=== PATIENT | male | born 1935 | race Caucasian/White ===

== ENCOUNTER 2016-10-15 10:36 | Emergency (ER) | payer MEDICARE, OTHER ==
[2016-10-15 10:57] VITALS: TEMP 97.5
--- NOTE | 2016-10-15 11:33 | ED ---
General Adult HPI - General Chief complaint: Extremity Injury, Lower Stated complaint: Leg spasms Time Seen by Provider: 10/15/16 11:19 Source: patient, family, RN notes reviewed, old records reviewed Mode of arrival: ambulatory Limitations: no limitations - History of Present Illness Initial comments: Chief complaint and history of present illness a 80-year-old male here with his daughter. Patient reports that throughout this past evening last night he had spasms in both legs. He would pull his toes back which will help alleviate the discomfort. Patient thinks he is drinking adequate fluids. Denies any increase in activity or injury. Otherwise no back pain. No other complaints. - Related Data Home Medications Medication Instructions Recorded Confirmed Warfarin [Coumadin] 5 tab PO MOFR 05/23/14 10/15/16 Atorvastatin [Lipitor] 5 mg PO DAILY 06/11/14 10/15/16 Atenolol 25 mg PO HS 07/15/15 10/15/16 Cholecalciferol [Vitamin D3] 2,000 unit PO DAILY 07/15/15 10/15/16 Sertraline [Zoloft] 50 mg PO DAILY 07/15/15 10/15/16 Tiotropium 18 Mcg/Puff [Spiriva] 1 cap INHALATION RT-DAILY 07/15/15 10/15/16 Warfarin [Coumadin] 2.5 mg PO SUTUWETHSA 10/15/16 10/15/16 traZODone HCL 100 mg PO HS 10/15/16 10/15/16 Allergies Allergy/AdvReac Type Severity Reaction Status Date / Time No Known Allergies Allergy Verified 10/15/16 11:17 Review of Systems ROS Statement: Those systems with pertinent positive or pertinent negative responses have been documented in the HPI. Review of systems no visual acuity changes no headache no stiff neck no chest pain no palpitations no shortness of breath no abdominal discomfort and no vomiting or diarrhea. Patient did take Pepto-Bismol because he felt a little nauseated. No neuro deficits. His complaint is frequent spasms of both left and right calves during the evening making difficult to sleep. All systems otherwise reviewed. Past medical problems significant for A. fib on Coumadin. Hyperlipidemia, hypertension and some memory impairment. Surgeries include appendectomy, cholecystectomy, hernia repair, pacemaker, prostate surgery and tonsillectomy. Family history noncontributory. No known ALLERGIES. Nonsmoker nondrinker. ROS Other: All systems not noted in ROS Statement are negative. Past Medical History Past Medical History: Atrial Fibrillation, Hyperlipidemia, Hypertension, Memory Impairment History of Any Multi-Drug Resistant Organisms: None Reported Past Surgical History: Appendectomy, Cholecystectomy, Hernia Repair, Pacemaker, Prostate Surgery, Tonsillectomy Past Psychological History: No Psychological Hx Reported Smoking Status: Former smoker Past Alcohol Use History: None Reported Past Drug Use History: None Reported - Past Family History Mother Family Medical History: Dementia Father Additional Family Medical History / Comment(s): smoker General Exam - General Exam Comments Initial Comments: General: The patient is awake and alert, in no distress, and does not appear acutely ill. Currently symptom-free. Last night he had muscle spasms to both left and right calf. Vital signs show temperature 97.5 pulse 89 respiratory rate 17 pulse ox 96% room air blood pressure 144/76. Elevated systolic noted patient will be following up with his family physician next week. Eye: Pupils are equal, round and reactive to light, extra-ocular movements are intact ; there is normal conjunctiva bilaterally. No signs of icterus. Ears, nose, mouth and throat: There are moist mucous membranes and no oral lesions. Neck: The neck is supple, there is no tenderness . Cardiovascular: Irregular rate and rhythm. No murmur, rub or gallop is appreciated. Respiratory: Lungs are clear to auscultation, respirations are non-labored, breath sounds are equal. No wheezes, stridor, rales, or rhonchi. Gastrointestinal: Soft, non-distended, non-tender abdomen without masses or organomegaly noted. There is no rebound or guarding present. No CVA tenderness. Bowel sounds are unremarkable. Back: There is no tenderness to palpation in the midline. There is no obvious deformity. No rashes noted. Musculoskeletal: Normal ROM, no tenderness, There is no pedal edema. There is no calf tenderness or swelling. Sensation intact. Pulses equal bilaterally 2+. No spasms at this time. Ambulates without difficulty no change in balance. No tenderness. Negative Homans sign bilaterally. Neurological: No focal or lateralizing findings plain have any neuro deficits. None noted. Skin: Skin is warm and dry and no rashes or lesions are noted. Limitations: no limitations Course Vital Signs 10/15/16 10:53 Temperature 97.5 F L Pulse Rate 89 Respiratory 17 Rate Blood Pressure 144/76 O2 Sat by Pulse 96 Oximetry Medical Decision Making - Medical Decision Making Patient advised to increase fluid intake. Take Tylenol prior to going to bed. Place pole between her legs are on her knees. If her problem persists follow- up family physician. - Lab Data Result diagrams: 10/15/16 11:30 10/15/16 11:30 Lab Results 10/15/16 10/15/16 Range/Units 11:30 11:30 WBC 6.0 (3.8-10.6) k/uL RBC 4.29 L (4.30-5.90) m/uL Hgb 13.1 (13.0-17.5) gm/dL Hct 39.2 (39.0-53.0) % MCV 91.3 (80.0-100.0) fL MCH 30.4 (25.0-35.0) pg MCHC 33.4 (31.0-37.0) g/dL RDW 13.1 (11.5-15.5) % Plt Count 227 (150-450) k/uL Neutrophils % 67 % Lymphocytes % 24 % Monocytes % 6 % Eosinophils % 2 % Basophils % 1 % Neutrophils # 4.0 (1.3-7.7) k/uL Lymphocytes # 1.4 (1.0-4.8) k/uL Monocytes # 0.3 (0-1.0) k/uL Eosinophils # 0.1 (0-0.7) k/uL Basophils # 0.1 (0-0.2) k/uL Sodium 141 (137-145) mmol/L Potassium 4.3 (3.5-5.1) mmol/L Chloride 106 (98-107) mmol/L Carbon Dioxide 26 (22-30) mmol/L Anion Gap 9 mmol/L BUN 20 (9-20) mg/dL Creatinine 1.05 (0.66-1.25) mg/dL Est GFR (MDRD) Af Amer >60 (>60 ml/min/1.73 sqM) Est GFR (MDRD) Non-Af >60 (>60 ml/min/1.73 sqM) Glucose 98 (74-99) mg/dL Calcium 9.5 (8.4-10.2) mg/dL Total Bilirubin 0.7 (0.2-1.3) mg/dL AST 23 (17-59) U/L ALT 30 (21-72) U/L Alkaline Phosphatase 64 (38-126) U/L Total Protein 7.0 (6.3-8.2) g/dL Albumin 4.2 (3.5-5.0) g/dL Disposition Clinical Impression: Muscle spasm of both lower legs Disposition: HOME SELF-CARE Condition: Stable Instructions: Muscle Spasm (ED) Additional Instructions: Increase fluids, take, prior to bed. Place pillow between her legs on the her knees. Follow-up with your family physician if problem persists Time of Disposition: 12:22
[2016-10-15 12:03] LABS: Basophils # (A) 0.1 k/uL (0-0.2); Basophils % (A) 1 %; CH 31.5; CHCM 34.7; Eosinophils # (A) 0.1 k/uL (0-0.7); Eosinophils % (A) 2 %; HCT 39.2 % (39.0-53.0); HDW 2.51; HGB 13.1 gm/dL (13.0-17.5); Luc # (Auto) 0.07; Luc % (Auto) 1; Lymphocytes # (A) 1.4 k/uL (1.0-4.8); Lymphocytes % (A) 24 %; MCH 30.4 pg (25.0-35.0); MCHC 33.4 g/dL (31.0-37.0); MCV 91.3 fL (80.0-100.0); Mean Platelet Volume 7.5; Monocytes # (A) 0.3 k/uL (0-1.0); Monocytes % (A) 6 %; Neutrophils % (A) 67 %; RBC 4.29 m/uL (4.30-5.90); RDW 13.1 % (11.5-15.5)
[2016-10-15 12:06] LABS: ALT 30 U/L (21-72); AST 23 U/L (17-59); Alkaline Phosphatase 64 U/L (38-126); Anion Gap 9 mmol/L; Blood Urea Nitrogen 20 mg/dL (9-20); Calcium 9.5 mg/dL (8.4-10.2); Carbon Dioxide 26 mmol/L (22-30); Chloride 106 mmol/L (98-107); Glucose 98 mg/dL (74-99); Non-African American GFR(MDRD) >60 (>60 ml/min/1.73 sqM); Potassium 4.3 mmol/L (3.5-5.1); Sodium 141 mmol/L (137-145); Total Bilirubin 0.7 mg/dL (0.2-1.3)
[2016-10-15 12:39] VITALS: BP 145/77; PULSE 78; RESP 16
== END 2016-10-15 12:39 | disposition home or self-care (01) ==
LOC: EC 10:36
DX: M62.838 Other muscle spasm (principal); I48.91 Unspecified atrial fibrillation; I10 Essential (primary) hypertension; E78.5 Hyperlipidemia, unspecified; R41.3 Other amnesia; Z79.01 Long term (current) use of anticoagulants; Z79.899 Other long term (current) drug therapy; Z95.0 Presence of cardiac pacemaker; Z87.891 Personal history of nicotine dependence
CPT/HCPCS: 36415; 80053; 85025; 99284

== ENCOUNTER 2016-12-31 15:25 | Emergency (ER) | payer MEDICARE, OTHER ==
[2016-12-31] MEDS ORDERED: LORazepam 2 MG/ML SYRINGE IV STA (16:02)
--- NOTE | 2016-12-31 16:08 | ED ---
General Adult HPI - General Chief complaint: Arrhythmia/Palpitations Stated complaint: irreg heartbeat Time Seen by Provider: 12/31/16 15:45 Source: patient, RN notes reviewed, old records reviewed Mode of arrival: wheelchair Limitations: no limitations - History of Present Illness Initial comments: This is an 81-year-old man brought in by family for evaluation of possible arrhythmia, anxiety, palpitations. Patient has history of A. fib hypertension high cholesterol, multiple abdominal surgeries and multiple surgeries in general. No recent surgery. No fevers no cough no congestion, at this time is without shortness of breath or chest pain. Patient states throughout the day had a couple episodes of heart beating fast in his chest, concerned about palpitations and A. fib. At this time patient states symptoms are improved - Related Data Home Medications Medication Instructions Recorded Confirmed Warfarin [Coumadin] 5 tab PO MOTH 05/23/14 12/31/16 Atorvastatin [Lipitor] 5 mg PO DAILY 06/11/14 12/31/16 Atenolol 25 mg PO HS 07/15/15 12/31/16 Cholecalciferol [Vitamin D3] 2,000 unit PO HS 07/15/15 12/31/16 Sertraline [Zoloft] 50 mg PO DAILY 07/15/15 12/31/16 Tiotropium 18 Mcg/Puff [Spiriva] 1 cap INHALATION RT-DAILY 07/15/15 12/31/16 Warfarin [Coumadin] 2.5 mg PO SUTUWEFRSA 10/15/16 12/31/16 Temazepam [Restoril] 15 mg PO HS 12/31/16 12/31/16 Allergies Allergy/AdvReac Type Severity Reaction Status Date / Time No Known Allergies Allergy Verified 12/31/16 16:02 Review of Systems ROS Statement: Those systems with pertinent positive or pertinent negative responses have been documented in the HPI. ROS Other: All systems not noted in ROS Statement are negative. Past Medical History Past Medical History: Atrial Fibrillation, Hyperlipidemia, Hypertension, Memory Impairment History of Any Multi-Drug Resistant Organisms: None Reported Past Surgical History: Appendectomy, Cholecystectomy, Hernia Repair, Pacemaker, Prostate Surgery, Tonsillectomy Past Psychological History: No Psychological Hx Reported Smoking Status: Former smoker Past Alcohol Use History: None Reported Past Drug Use History: None Reported - Past Family History Mother Family Medical History: Dementia Father Additional Family Medical History / Comment(s): smoker General Exam Limitations: no limitations General appearance: alert, in no apparent distress Head exam: Present: atraumatic, normocephalic, normal inspection Eye exam: Present: normal appearance, PERRL, EOMI. Absent: scleral icterus, conjunctival injection, periorbital swelling ENT exam: Present: normal exam, mucous membranes moist Neck exam: Present: normal inspection. Absent: tenderness, meningismus, lymphadenopathy Respiratory exam: Present: normal lung sounds bilaterally. Absent: respiratory distress, wheezes, rales, rhonchi, stridor Cardiovascular Exam: Present: regular rate, normal rhythm, normal heart sounds. Absent: systolic murmur, diastolic murmur, rubs, gallop, clicks GI/Abdominal exam: Present: soft, normal bowel sounds. Absent: distended, tenderness, guarding, rebound, rigid Extremities exam: Present: normal inspection, full ROM, normal capillary refill. Absent: tenderness, pedal edema, joint swelling, calf tenderness Back exam: Present: normal inspection Neurological exam: Present: alert, oriented X3, CN II-XII intact Psychiatric exam: Present: normal affect, normal mood Skin exam: Present: warm, dry, intact, normal color. Absent: rash Course Vital Signs 12/31/16 12/31/16 12/31/16 15:32 16:36 17:36 Temperature 99.0 F 97.6 F Pulse Rate 86 65 67 Respiratory 20 18 18 Rate Blood Pressure 126/70 140/72 131/79 O2 Sat by Pulse 98 98 97 Oximetry - Reevaluation(s) Reevaluation #1: Patient is consults for greater than 15 minutes regarding test results, questions are answered, okay for discharge EKG Findings - EKG Comments: EKG Findings:: EKG shows pared rhythm, rate of 96, QRS 140, QTc 480 Medical Decision Making - Medical Decision Making 81 male year for evaluation. He does present for evaluation of possible palpitations and arrhythmia, patient is in A. fib but controlled rate. On blood thinners. Patient Limberg is normal troponins negative. Patient can be discharged home - Lab Data Result diagrams: 12/31/16 15:45 12/31/16 15:45 Lab Results 12/31/16 12/31/16 12/31/16 Range/Units 15:45 15:45 15:45 WBC 7.2 (3.8-10.6) k/uL RBC 4.07 L (4.30-5.90) m/uL Hgb 12.9 L (13.0-17.5) gm/dL Hct 37.9 L (39.0-53.0) % MCV 93.2 (80.0-100.0) fL MCH 31.8 (25.0-35.0) pg MCHC 34.1 (31.0-37.0) g/dL RDW 14.1 (11.5-15.5) % Plt Count 236 (150-450) k/uL Neutrophils % 54 % Lymphocytes % 35 % Monocytes % 6 % Eosinophils % 2 % Basophils % 1 % Neutrophils # 3.9 (1.3-7.7) k/uL Lymphocytes # 2.5 (1.0-4.8) k/uL Monocytes # 0.4 (0-1.0) k/uL Eosinophils # 0.2 (0-0.7) k/uL Basophils # 0.1 (0-0.2) k/uL PT (9.0-12.0) sec INR (<1.1) APTT (22.0-30.0) sec D-Dimer (<0.60) mg/L FEU Sodium 140 (137-145) mmol/L Potassium 4.2 (3.5-5.1) mmol/L Chloride 108 H (98-107) mmol/L Carbon Dioxide 20 L (22-30) mmol/L Anion Gap 12 mmol/L BUN 26 H (9-20) mg/dL Creatinine 1.06 (0.66-1.25) mg/dL Est GFR (MDRD) Af Amer >60 (>60 ml/min/1.73 sqM) Est GFR (MDRD) Non-Af >60 (>60 ml/min/1.73 sqM) Glucose 143 H (74-99) mg/dL Calcium 9.7 (8.4-10.2) mg/dL Magnesium 2.1 (1.6-2.3) mg/dL Total Bilirubin 0.6 (0.2-1.3) mg/dL AST 24 (17-59) U/L ALT 24 (21-72) U/L Alkaline Phosphatase 59 (38-126) U/L Total Creatine Kinase 55 (55-170) U/L CK-MB (CK-2) 0.3 (0.0-2.4) ng/mL CK-MB (CK-2) Rel Index 0.5 Troponin I <0.012 (0.000-0.034) ng/mL Total Protein 7.1 (6.3-8.2) g/dL Albumin 4.2 (3.5-5.0) g/dL Lipase (23-300) U/L 12/31/16 12/31/16 Range/Units 15:45 15:45 WBC (3.8-10.6) k/uL RBC (4.30-5.90) m/uL Hgb (13.0-17.5) gm/dL Hct (39.0-53.0) % MCV (80.0-100.0) fL MCH (25.0-35.0) pg MCHC (31.0-37.0) g/dL RDW (11.5-15.5) % Plt Count (150-450) k/uL Neutrophils % % Lymphocytes % % Monocytes % % Eosinophils % % Basophils % % Neutrophils # (1.3-7.7) k/uL Lymphocytes # (1.0-4.8) k/uL Monocytes # (0-1.0) k/uL Eosinophils # (0-0.7) k/uL Basophils # (0-0.2) k/uL PT 19.4 H (9.0-12.0) sec INR 2.0 (<1.1) APTT 27.7 (22.0-30.0) sec D-Dimer 0.23 (<0.60) mg/L FEU Sodium (137-145) mmol/L Potassium (3.5-5.1) mmol/L Chloride (98-107) mmol/L Carbon Dioxide (22-30) mmol/L Anion Gap mmol/L BUN (9-20) mg/dL Creatinine (0.66-1.25) mg/dL Est GFR (MDRD) Af Amer (>60 ml/min/1.73 sqM) Est GFR (MDRD) Non-Af (>60 ml/min/1.73 sqM) Glucose (74-99) mg/dL Calcium (8.4-10.2) mg/dL Magnesium (1.6-2.3) mg/dL Total Bilirubin (0.2-1.3) mg/dL AST (17-59) U/L ALT (21-72) U/L Alkaline Phosphatase (38-126) U/L Total Creatine Kinase (55-170) U/L CK-MB (CK-2) (0.0-2.4) ng/mL CK-MB (CK-2) Rel Index Troponin I (0.000-0.034) ng/mL Total Protein (6.3-8.2) g/dL Albumin (3.5-5.0) g/dL Lipase 191 (23-300) U/L - Radiology Data Radiology results: report reviewed (Chest x-ray is negative for acute disease), image reviewed Disposition Clinical Impression: Anxiety, Weakness Disposition: HOME SELF-CARE Condition: Good Instructions: Weakness (ED), Anxiety (ED) Referrals: Mack San MD [Primary Care Provider] - 1-2 days
[2016-12-31 16:16] LABS: Basophils # (A) 0.1 k/uL (0-0.2); Basophils % (A) 1 %; CH 31.9; CHCM 34.4; Eosinophils # (A) 0.2 k/uL (0-0.7); Eosinophils % (A) 2 %; HCT 37.9 % (39.0-53.0); HDW 2.55; HGB 12.9 gm/dL (13.0-17.5); Luc # (Auto) 0.16; Luc % (Auto) 2; Lymphocytes # (A) 2.5 k/uL (1.0-4.8); Lymphocytes % (A) 35 %; MCH 31.8 pg (25.0-35.0); MCHC 34.1 g/dL (31.0-37.0); MCV 93.2 fL (80.0-100.0); Mean Platelet Volume 6.8; Monocytes # (A) 0.4 k/uL (0-1.0); Monocytes % (A) 6 %; Neutrophils # (A) 3.9 k/uL (1.3-7.7); Neutrophils % (A) 54 %; RBC 4.07 m/uL (4.30-5.90); RDW 14.1 % (11.5-15.5); WBC 7.2 k/uL (3.8-10.6); WBC (Perox) 7.22
--- NOTE | 2016-12-31 16:24 | XR ---
EXAMINATION TYPE: XR chest 2V DATE OF EXAM: 12/31/2016 4:21 PM HISTORY: Shortness of breath. COMPARISON: April 20, 2016 TECHNIQUE: 2 views of the chest is submitted. FINDINGS: Demonstrated are scattered senescent parenchymal change. There is no evidence for focal infiltrate. The heart is stable. Hilar and mediastinal structures are within normal limits. Degenerative changes are seen of the dorsal spine. IMPRESSION: 1. Chronic changes without evidence for acute pulmonary disease.
[2016-12-31 16:30] LABS: ALT 24 U/L (21-72); AST 24 U/L (17-59); Alkaline Phosphatase 59 U/L (38-126); Anion Gap 12 mmol/L; Blood Urea Nitrogen 26 mg/dL (9-20); Calcium 9.7 mg/dL (8.4-10.2); Carbon Dioxide 20 mmol/L (22-30); Chloride 108 mmol/L (98-107); Glucose 143 mg/dL (74-99); Magnesium 2.1 mg/dL (1.6-2.3); Non-African American GFR(MDRD) >60 (>60 ml/min/1.73 sqM); Partial Thromboplastin Time 27.7 sec (22.0-30.0); Potassium 4.2 mmol/L (3.5-5.1); Prothrombin Time 19.4 sec (9.0-12.0); Sodium 140 mmol/L (137-145); Total Bilirubin 0.6 mg/dL (0.2-1.3); Total Protein 7.1 g/dL (6.3-8.2)
[2016-12-31 16:34] LABS: Creatine Kinase 55 U/L (55-170)
[2016-12-31 16:36] VITALS: RESP 18
[2016-12-31 16:48] LABS: Creatine Kinase MB 0.3 ng/mL (0.0-2.4); Troponin I <0.012 ng/mL (0.000-0.034)
[2016-12-31 17:38] VITALS: BP 131/79; PULSE 67; TEMP 97.6
== END 2016-12-31 18:00 | disposition home or self-care (01) ==
LOC: EC 15:25
DX: R53.1 Weakness (principal); F41.9 Anxiety disorder, unspecified; R00.2 Palpitations; I48.91 Unspecified atrial fibrillation; E78.5 Hyperlipidemia, unspecified; I10 Essential (primary) hypertension; Z87.891 Personal history of nicotine dependence; Z79.01 Long term (current) use of anticoagulants; Z79.899 Other long term (current) drug therapy
CPT/HCPCS: 99285; 96374; 36415; 93005; 85379; 80053; 82550; 82553; 83690; 83735; 84484; 85025; 85610; 85730; 71020; J2060

== ENCOUNTER 2017-03-12 12:48 | Observation (INO) | payer MEDICARE, OTHER ==
[2017-03-12] MEDS ORDERED: SODIUM CHLORIDE 0.9% 1,000 ML IV STA (13:11)
--- NOTE | 2017-03-12 13:15 | ED ---
Chest Pain HPI - General Chief Complaint: Chest Pain Stated Complaint: Chest Pain Time Seen by Provider: 03/12/17 13:00 Source: patient, RN notes reviewed Mode of arrival: ambulatory Limitations: no limitations - History of Present Illness Initial Comments: This is a 81-year-old male who presents with complaints of left-sided chest pain for the last couple days he's also had black colored stools for 3 or 4 days. He initially thought was secondary to chocolate cookies he was eating he now states that continues. He is some generalized weakness. Denies any other symptoms at this time. MD Complaint: chest pain - Related Data Home Medications Medication Instructions Recorded Confirmed Warfarin [Coumadin] 5 tab PO MOTHSA 05/23/14 03/12/17 Atorvastatin [Lipitor] 5 mg PO DAILY 06/11/14 03/12/17 Atenolol 25 mg PO HS 07/15/15 03/12/17 Cholecalciferol [Vitamin D3] 2,000 unit PO HS 07/15/15 03/12/17 Sertraline [Zoloft] 50 mg PO DAILY 07/15/15 03/12/17 Tiotropium 18 Mcg/Puff [Spiriva] 1 cap INHALATION RT-DAILY 07/15/15 03/12/17 Warfarin [Coumadin] 2.5 mg PO SUTUWEFR 10/15/16 03/12/17 Temazepam [Restoril] 15 mg PO HS 12/31/16 03/12/17 Allergies Allergy/AdvReac Type Severity Reaction Status Date / Time No Known Allergies Allergy Verified 03/12/17 13:11 Review of Systems ROS Statement: Those systems with pertinent positive or pertinent negative responses have been documented in the HPI. ROS Other: All systems not noted in ROS Statement are negative. EKG Findings - EKG Results: EKG: interpreted by JEFF, sinus rhythm (Sinus rhythm atrial paced 74 heart rate. Her 192 QRS 140 QT/QTC of 46/450 left exodeviation right bundle-branch block pattern.) Past Medical History Past Medical History: Atrial Fibrillation, Hyperlipidemia, Hypertension, Memory Impairment History of Any Multi-Drug Resistant Organisms: None Reported Past Surgical History: Appendectomy, Cholecystectomy, Hernia Repair, Pacemaker, Prostate Surgery, Tonsillectomy Additional Past Surgical History / Comment(s): hemmroidectomy Past Psychological History: No Psychological Hx Reported Smoking Status: Former smoker Past Alcohol Use History: None Reported Past Drug Use History: None Reported - Past Family History Mother Family Medical History: Dementia Father Additional Family Medical History / Comment(s): smoker General Exam - General Exam Comments Initial Comments: This is a well-developed well-nourished awake alert oriented times 3 male Limitations: no limitations General appearance: alert, in no apparent distress Head exam: Present: atraumatic, normocephalic, normal inspection Eye exam: Present: normal appearance, PERRL, EOMI. Absent: scleral icterus, conjunctival injection, periorbital swelling ENT exam: Present: normal exam, mucous membranes moist Neck exam: Present: normal inspection. Absent: tenderness, meningismus, lymphadenopathy Respiratory exam: Present: normal lung sounds bilaterally. Absent: respiratory distress, wheezes, rales, rhonchi, stridor Cardiovascular Exam: Present: regular rate, normal rhythm, normal heart sounds. Absent: systolic murmur, diastolic murmur, rubs, gallop, clicks GI/Abdominal exam: Present: soft, normal bowel sounds. Absent: distended, tenderness, guarding, rebound, rigid Extremities exam: Present: normal inspection, full ROM, normal capillary refill. Absent: tenderness, pedal edema, joint swelling, calf tenderness Back exam: Present: normal inspection Neurological exam: Present: alert, oriented X3, CN II-XII intact Psychiatric exam: Present: normal affect, normal mood Skin exam: Present: warm, dry, intact, normal color. Absent: rash Course Vital Signs 03/12/17 03/12/17 03/12/17 12:52 13:56 14:50 Temperature 96.9 F L Pulse Rate 80 60 60 Respiratory 18 20 18 Rate Blood Pressure 140/76 149/73 150/76 O2 Sat by Pulse 98 96 95 Oximetry Chest Pain MDM - MDM I did review the imaging and results will family the patient. Also discussed the case with Dr. Vargas. The patient will be admitted for serial CBCs. Disposition Clinical Impression: Upper GI bleed, Atypical chest pain, Chest wall syndrome Disposition: ADMITTED IP TO THIS [facility] Condition: Stable Referrals: Mack San MD [Primary Care Provider] - 1-2 days
--- NOTE | 2017-03-12 13:39 | XR ---
EXAMINATION TYPE: XR chest 2V DATE OF EXAM: 03/12/2017 COMPARISON: 12/31/16 HISTORY: Shortness of breath TECHNIQUE: Frontal and lateral views of the chest are obtained. FINDINGS: Scattered senescent parenchymal changes noted. Hyperinflation compatible with COPD. No evidence for infiltrate. No evidence for atelectasis. Heart size is stable. Mediastinal structures are stable and grossly unremarkable. No evidence for hilar prominence. Degenerative changes dorsal spine. IMPRESSION: 1. No evidence for acute pulmonary disease.
[2017-03-12 13:40] LABS: Basophils # (A) 0.1 k/uL (0-0.2); Basophils % (A) 1 %; CH 31.7; CHCM 34.6; Eosinophils # (A) 0.2 k/uL (0-0.7); Eosinophils % (A) 3 %; HCT 39.4 % (39.0-53.0); HDW 2.48; HGB 13.4 gm/dL (13.0-17.5); Luc # (Auto) 0.13; Luc % (Auto) 2; Lymphocytes # (A) 2.3 k/uL (1.0-4.8); Lymphocytes % (A) 31 %; MCH 31.1 pg (25.0-35.0); MCHC 33.9 g/dL (31.0-37.0); MCV 91.9 fL (80.0-100.0); Mean Platelet Volume 7.1; Monocytes # (A) 0.5 k/uL (0-1.0); Monocytes % (A) 7 %; Neutrophils # (A) 4.1 k/uL (1.3-7.7); Neutrophils % (A) 57 %; RBC 4.29 m/uL (4.30-5.90); RDW 13.5 % (11.5-15.5); WBC 7.3 k/uL (3.8-10.6); WBC (Perox) 7.53
[2017-03-12 13:43] LABS: ALT 20 U/L (21-72); AST 22 U/L (17-59); Alkaline Phosphatase 59 U/L (38-126); Amylase 96 U/L (30-110); Anion Gap 9 mmol/L; Blood Urea Nitrogen 24 mg/dL (9-20); Calcium 9.3 mg/dL (8.4-10.2); Carbon Dioxide 25 mmol/L (22-30); Chloride 109 mmol/L (98-107); Glucose 118 mg/dL (74-99); Magnesium 2.1 mg/dL (1.6-2.3); Non-African American GFR(MDRD) >60 (>60 ml/min/1.73 sqM); Potassium 4.1 mmol/L (3.5-5.1); Sodium 143 mmol/L (137-145); Total Bilirubin 0.6 mg/dL (0.2-1.3); Total Protein 6.9 g/dL (6.3-8.2)
[2017-03-12 13:46] LABS: Creatine Kinase 70 U/L (55-170); INR 2.9 (<1.1); Prothrombin Time 27.9 sec (9.0-12.0)
[2017-03-12 13:59] LABS: Creatine Kinase MB 0.4 ng/mL (0.0-2.4); Troponin I <0.012 ng/mL (0.000-0.034)
[2017-03-12] MEDS ORDERED: NALOXONE 0.4 MG/ML 1 ML VIAL IV PRN (16:29)
[2017-03-12] MEDS ORDERED: WARFARIN 2.5 MG TAB PO SCH (18:00)
[2017-03-12 18:16] VITALS: BMI 25.8
[2017-03-12] MEDS: SODIUM CHLORIDE 0.9% 1,000 ML IV SCH (18:19)
[2017-03-12] MEDS: PANTOPRAZOLE 40 MG/10 ML VIAL IV SCH (20:16)
[2017-03-12] MEDS ORDERED: CHOLECALCIFEROL 1,000 UNIT TAB PO SCH (21:00)
[2017-03-12] MEDS ORDERED: TEMAZEPAM 15 MG CAP PO SCH (21:00)
[2017-03-12] MEDS ORDERED: ATENOLOL 25 MG TAB PO SCH (21:00)
[2017-03-13] MEDS ORDERED: TIOTROPIUM 18 MCG/PUFF INHALER INHALATION SCH (08:00)
[2017-03-13] MEDS: PANTOPRAZOLE 40 MG/10 ML VIAL IV SCH (08:44)
[2017-03-13] MEDS: SODIUM CHLORIDE 0.9% 1,000 ML IV SCH (08:47)
[2017-03-13] MEDS ORDERED: ATORVASTATIN 10 MG TAB PO SCH (09:00)
[2017-03-13] MEDS ORDERED: SERTRALINE 50 MG TAB PO SCH (09:00)
[2017-03-13] MEDS ORDERED: BISMUTH SUBSALICYLATE 4,192 MG/240 ML BOTTLE PO PRN (09:39)
[2017-03-13 09:50] LABS: Basophils # (A) 0.1 k/uL (0-0.2); Basophils % (A) 1 %; CH 31.9; CHCM 34.3; Eosinophils # (A) 0.2 k/uL (0-0.7); Eosinophils % (A) 3 %; HCT 37.7 % (39.0-53.0); HDW 2.46; HGB 12.7 gm/dL (13.0-17.5); Luc # (Auto) 0.11; Luc % (Auto) 2; Lymphocytes # (A) 1.9 k/uL (1.0-4.8); Lymphocytes % (A) 31 %; MCH 31.5 pg (25.0-35.0); MCHC 33.8 g/dL (31.0-37.0); MCV 93.3 fL (80.0-100.0); Mean Platelet Volume 6.9; Monocytes # (A) 0.3 k/uL (0-1.0); Monocytes % (A) 5 %; Neutrophils # (A) 3.6 k/uL (1.3-7.7); Neutrophils % (A) 58 %; RBC 4.04 m/uL (4.30-5.90); RDW 13.5 % (11.5-15.5); WBC 6.2 k/uL (3.8-10.6); WBC (Perox) 6.13
[2017-03-13 11:12] LABS: ALT 22 U/L (21-72); AST 22 U/L (17-59); Alkaline Phosphatase 54 U/L (38-126); Anion Gap 10 mmol/L; Blood Urea Nitrogen 15 mg/dL (9-20); Carbon Dioxide 23 mmol/L (22-30); Chloride 109 mmol/L (98-107); Glucose 103 mg/dL (74-99); Non-African American GFR(MDRD) >60 (>60 ml/min/1.73 sqM); Potassium 3.8 mmol/L (3.5-5.1); Sodium 142 mmol/L (137-145); Total Bilirubin 0.9 mg/dL (0.2-1.3); Total Protein 6.4 g/dL (6.3-8.2)
[2017-03-13 11:16] LABS: INR 2.3 (<1.1)
[2017-03-13 11:17] LABS: Prothrombin Time 21.8 sec (9.0-12.0)
--- NOTE | 2017-03-13 14:36 | P.HPIM ---
History of Present Illness H&P Date: 03/13/17 Chief Complaint: Black stools and chest discomfort This is a 81-year-old male with a known history of atrial fibrillation, hyperlipidemia and hypertension. Patient presents to the emergency room with complaints of black stools that had started on Friday this week. He also is having some chest discomfort. He describes it more of a burning sensation in the epigastric area. Patient had been taking Pepto-Bismol for his abdominal discomfort. He noted that he took Pepto-Bismol earlier this week as well as end of last week. He also had a fall about a week ago he landed on his bottom but had put his hands down on the floor as well and had a jarring effect into the chest wall. Troponins are negative 2. EKG shows atrial paced with a right bundle branch block. His chest discomfort does improve with Tylenol. He denies any bright red blood in his stools. Last colonoscopy was a few years ago and was reported normal at that time. He's never had EGD. Hemoglobin on admission is 13.4 and has gone down to 12.7. Patient did have a brown stool today. Patient denies any nausea or vomiting. Denies any burning with urination. Denies any shortness of breath. Denies any fevers or chills. He is on Coumadin for his atrial fibrillation and INR is therapeutic at 2.9. Review of Systems Please refer to HPI otherwise unremarkable Past Medical History Past Medical History: Atrial Fibrillation, Hyperlipidemia, Hypertension, Memory Impairment History of Any Multi-Drug Resistant Organisms: None Reported Past Surgical History: Appendectomy, Cholecystectomy, Hernia Repair, Pacemaker, Prostate Surgery, Tonsillectomy Additional Past Surgical History / Comment(s): hemmroidectomy Past Anesthesia/Blood Transfusion Reactions: No Reported Reaction Type of Cardiac Device: Permanent Pacemaker Device Placement Date:: 2013 Past Psychological History: No Psychological Hx Reported Smoking Status: Former smoker Past Alcohol Use History: None Reported Past Drug Use History: None Reported - Past Family History Mother Family Medical History: Dementia Father Additional Family Medical History / Comment(s): smoker Medications and Allergies Home Medications Medication Instructions Recorded Confirmed Type Warfarin [Coumadin] 5 mg PO MOTHSA 05/23/14 03/12/17 History Atorvastatin [Lipitor] 5 mg PO DAILY 06/11/14 03/12/17 History Atenolol 25 mg PO HS 07/15/15 03/12/17 History Cholecalciferol [Vitamin D3] 2,000 unit PO HS 07/15/15 03/12/17 History Sertraline [Zoloft] 50 mg PO DAILY 07/15/15 03/12/17 History Tiotropium 18 Mcg/Puff [Spiriva] 1 cap INHALATION RT-DAILY 07/15/15 03/12/17 History Warfarin [Coumadin] 2.5 mg PO SUTUWEFR 10/15/16 03/12/17 History Temazepam [Restoril] 15 mg PO HS 12/31/16 03/12/17 History Allergies Allergy/AdvReac Type Severity Reaction Status Date / Time No Known Allergies Allergy Verified 03/12/17 13:11 Physical Exam Vitals: Vital Signs Temp Pulse Pulse Pulse Resp BP BP 03/13/17 12:00 97.9 F 67 19 140/80 03/13/17 08:00 98.2 F 61 16 137/72 03/13/17 07:44 03/13/17 04:00 97.7 F 60 16 122/68 03/13/17 00:00 97.7 F 60 16 115/64 03/12/17 20:00 61 16 03/12/17 18:41 69 18 03/12/17 18:03 97.7 F 69 18 140/73 03/12/17 14:50 60 18 150/76 Pulse Ox 03/13/17 12:00 92 L 03/13/17 08:00 94 L 03/13/17 07:44 96 03/13/17 04:00 93 L 03/13/17 00:00 97 03/12/17 20:00 03/12/17 18:41 03/12/17 18:03 95 03/12/17 14:50 95 Intake and Output 03/12/17 03/13/17 03/13/17 22:59 06:59 14:59 Intake Total 480 600 Balance 480 600 Intake: Oral 480 600 Other: Voiding Method Toilet Toilet Toilet # Voids 1 Weight 84.1 kg Head normocephalic Neck supple Lungs clear to auscultation bilaterally no wheezing or crackles. Tenderness with palpation of the chest wall Heart regular rate and rhythm S1-S2, no rub or gallop Abdomen is soft mild epigastric tenderness nondistended positive bowel sounds no hepatosplenomegaly Extremities no edema Neuro alert and orientated to 3 Results CBC & Chem 7: 03/13/17 09:33 03/13/17 09:33 Labs: Abnormal Lab Results - Last 24 Hours (Table) 03/13/17 03/13/17 03/13/17 Range/Units 09:33 09:33 09:33 RBC 4.04 L (4.30-5.90) m/uL Hgb 12.7 L (13.0-17.5) gm/dL Hct 37.7 L (39.0-53.0) % PT 21.8 H (9.0-12.0) sec Chloride 109 H (98-107) mmol/L Glucose 103 H (74-99) mg/dL Thrombosis Risk Factor Assmnt - Choose All That Apply Any of the Below Risk Factors Present?: Yes Each Factor Represents 1 point: Obesity (BMI >25) Other Risk Factors: Yes Each Risk Factor Represents 3 Points: Age 75 years or older Thrombosis Risk Factor Assessment Total Risk Factor Score: 4 Thrombosis Risk Factor Assessment Level: Moderate Risk Assessment and Plan Plan: 1. Epigastric abdominal discomfort with black stools: Hemoglobin is stable. Stool for occult blood is negative. Likely the black stools are related to patient taking Pepto-Bismol. Amylase and lipase and LFTs are all within normal range. Patient is been started on Protonix 40 mg IV twice a day. We'll advance diet to regular diet 2. Chest discomfort likely more GI related. However EKG shows no acute changes. It does show atrial paced with a right bundle branch block. We'll repeated another EKG today. Troponins are negative 2 sets. Patient has had a stress tests 2 years ago which was negative. 3. History of paroxysmal atrial fibrillation maintained on Coumadin for anticoagulation. INR therapeutic at 2.9 4. Hyperlipidemia 5. Hypertension 6. Depression GI prophylaxis Protonix and DVT prophylaxis Coumadin Time with Patient: Greater than 30 (Greater than 50% of the total time spent in counseling and coordination of care.I performed an examination of the patient and discussed their management with the physician Asphalt Tile Floor Layer. I have reviewed the Physician Asphalt Tile Floor Layer's notes and agree with the documented findings and plan of care)
[2017-03-13 16:09] VITALS: BP 121/66; PULSE 62; RESP 16; TEMP 98.8
--- NOTE | 2017-03-13 16:24 | P.DS ---
Providers Date of admission: 03/12/17 16:30 Expected date of discharge: 03/13/17 Attending physician: Radha Vargas [facility]: Discharge diagnosis 1. Epigastric abdominal discomfort with black stools: Hemoglobin is stable. Stool for occult blood is negative. Likely the black stools are related to patient taking Pepto-Bismol. Amylase and lipase and LFTs are all within normal range. Patient is been started on Protonix 40 mg IV twice a day. We'll advance diet to regular diet. Patient may have some underlying acid reflux 2. Chest discomfort likely more GI related. However EKG shows no acute changes. It does show atrial paced with a right bundle branch block. We'll repeated another EKG today. Troponins are negative 2 sets. Patient has had a stress tests 2 years ago which was negative. 3. History of paroxysmal atrial fibrillation maintained on Coumadin for anticoagulation. INR therapeutic at 2.9 4. Hyperlipidemia 5. Hypertension 6. Depression Hospital course This is a 81-year-old male with a known history of atrial fibrillation, hyperlipidemia and hypertension. Patient presents to the emergency room with complaints of black stools that had started on Friday this week. He also is having some chest discomfort. He describes it more of a burning sensation in the epigastric area. Patient had been taking Pepto-Bismol for his abdominal discomfort. He noted that he took Pepto-Bismol earlier this week as well as end of last week. He also had a fall about a week ago he landed on his bottom but had put his hands down on the floor as well and had a jarring effect into the chest wall. Troponins are negative 2. EKG shows atrial paced with a right bundle branch block. His chest discomfort does improve with Tylenol. He denies any bright red blood in his stools. Last colonoscopy was a few years ago and was reported normal at that time. He's never had EGD. Hemoglobin on admission is 13.4 and has gone down to 12.7. Patient has tolerated advancement of diet. He's had 2 brown stools today. Chest discomfort has improved as well. He was on Protonix. Patient may have underlying GERD-like symptoms he did complain of some burning sensation in the epigastric area going up into the chest. PA was ruled out. Troponins are negative 2 sets. EKG had showed no acute changes. Patient follow-up with his PCP in the office. He will be sent home with omeprazole 20 mg daily for his GERD symptoms. If patient symptoms do persist he may benefit from a GI evaluation. He is medically stable for discharge. Patient Condition at Discharge: Stable Plan - Discharge Summary New Discharge Prescriptions: New Omeprazole 20 mg PO DAILY #30 tablet. Continue Warfarin [Coumadin] 5 mg PO MOTHSA Atorvastatin [Lipitor] 5 mg PO DAILY Sertraline [Zoloft] 50 mg PO DAILY Cholecalciferol [Vitamin D3] 2,000 unit PO HS Tiotropium 18 Mcg/Puff [Spiriva] 1 cap INHALATION RT-DAILY Atenolol 25 mg PO HS Warfarin [Coumadin] 2.5 mg PO SUTUWEFR Temazepam [Restoril] 15 mg PO HS Discharge Medication List Warfarin [Coumadin] 5 mg PO MOTHSA 05/23/14 [History] Atorvastatin [Lipitor] 5 mg PO DAILY 06/11/14 [History] Atenolol 25 mg PO HS 07/15/15 [History] Cholecalciferol [Vitamin D3] 2,000 unit PO HS 07/15/15 [History] Sertraline [Zoloft] 50 mg PO DAILY 07/15/15 [History] Tiotropium 18 Mcg/Puff [Spiriva] 1 cap INHALATION RT-DAILY 07/15/15 [History] Warfarin [Coumadin] 2.5 mg PO SUTUWEFR 10/15/16 [History] Temazepam [Restoril] 15 mg PO HS 12/31/16 [History] Omeprazole 20 mg PO DAILY #30 tablet. 03/13/17 [Rx] Follow up Appointment(s)/Referral(s): Mack San MD [Primary Care Provider] - 1 Week Activity/Diet/Wound Care/Special Instructions: Diet: cardiac Activity: as tolerated Discharge Disposition: HOME SELF-CARE
[2017-03-13] MEDS ORDERED: WARFARIN 5 MG TAB PO SCH (18:00)
[2017-03-14] MEDS ORDERED: PANTOPRAZOLE 40 MG TABLET PO SCH (09:00)
== END 2017-03-13 17:02 | disposition home or self-care (01) ==
LOC: EC 12:48 → 3OBS 16:30
PROVIDERS: ADMIT Internal Medicine; ATTEND Internal Medicine
DX: R10.13 Epigastric pain (principal); R19.5 Other fecal abnormalities; R07.89 Other chest pain; I48.0 Paroxysmal atrial fibrillation; E78.5 Hyperlipidemia, unspecified; I10 Essential (primary) hypertension; F32.9 Major depressive disorder, single episode, unspecified; Z79.01 Long term (current) use of anticoagulants; Z79.899 Other long term (current) drug therapy; Z95.0 Presence of cardiac pacemaker; Z87.891 Personal history of nicotine dependence
CPT/HCPCS: 96361; 96374; 96376; 99285; 36415; 94640; 94760; 93005; 86900; 86901; 83880; 80053 ×2; 82150; 82550; 82553; 83690; 83735; 84484 ×2; 85025 ×2; 85610 ×2; 85730; 86850; 82272; 71020; G0378 ×2; C9113 ×2

== ENCOUNTER 2018-11-13 16:52 | Inpatient (IN) | payer MEDICARE, OTHER ==
[2018-11-13] MEDS ORDERED: SODIUM CHLORIDE 0.9% 1,000 ML IV STA (17:05)
--- NOTE | 2018-11-13 17:27 | ED ---
Recheck HPI - General Chief Complaint: Recheck/Abnormal Lab/Rx Stated Complaint: Abn labs Time Seen by Provider: 11/13/18 17:05 Source: patient, RN notes reviewed, old records reviewed Mode of arrival: ambulatory Limitations: no limitations - History of Present Illness Initial Comments: This is an 82-year-old male the ER for evaluation. Patient comes in for evaluation of abnormal lab tests. Patient admits to hematuria and blood in his urine. Patient states his Coumadin has been elevated lately he has been taking his medication inappropriately but he just got confused and was not intentional. MD Complaint: abnormal lab -: unknown Returns Today for: Called Because of Abnormal Lab/Test Symptoms Since Prior Visit: no new symptoms Context: called for abnormal lab result Associated Symptoms: none Treatments Prior to Arrival: other (None) - Related Data Home Medications Medication Instructions Recorded Confirmed Atenolol 25 mg PO HS 07/15/15 11/13/18 Cholecalciferol [Vitamin D3] 2,000 unit PO HS 07/15/15 11/13/18 Tiotropium 18 Mcg/Puff [Spiriva] 1 cap INHALATION RT-DAILY 07/15/15 11/13/18 Atorvastatin [Lipitor] 20 mg PO DAILY 11/13/18 11/13/18 Donepezil HCl [Aricept] 5 mg PO HS 11/13/18 11/13/18 Melatonin 10 mg PO HS 11/13/18 11/13/18 Sertraline [Zoloft] 100 mg PO HS 11/13/18 11/13/18 Suvorexant [Belsomra] 20 mg PO HS 11/13/18 11/13/18 Warfarin [Coumadin] 2.5 mg PO SUMOTUWETHFR 11/13/18 11/13/18 Warfarin [Coumadin] 5 mg PO SA 11/13/18 11/13/18 Allergies Allergy/AdvReac Type Severity Reaction Status Date / Time No Known Allergies Allergy Verified 11/13/18 17:47 Review of Systems ROS Statement: Those systems with pertinent positive or pertinent negative responses have been documented in the HPI. ROS Other: All systems not noted in ROS Statement are negative. Past Medical History Past Medical History: Atrial Fibrillation, Hyperlipidemia, Hypertension, Memory Impairment History of Any Multi-Drug Resistant Organisms: None Reported Past Surgical History: Appendectomy, Cholecystectomy, Hernia Repair, Pacemaker, Prostate Surgery, Tonsillectomy Additional Past Surgical History / Comment(s): hemmroidectomy Past Anesthesia/Blood Transfusion Reactions: No Reported Reaction Type of Cardiac Device: Permanent Pacemaker Device Placement Date:: 2013 Past Psychological History: No Psychological Hx Reported Smoking Status: Former smoker Past Alcohol Use History: None Reported Past Drug Use History: None Reported - Past Family History Mother Family Medical History: Dementia Father Additional Family Medical History / Comment(s): smoker General Exam Limitations: no limitations General appearance: alert, in no apparent distress Head exam: Present: atraumatic, normocephalic, normal inspection Eye exam: Present: normal appearance, PERRL, EOMI. Absent: scleral icterus, conjunctival injection, periorbital swelling ENT exam: Present: normal exam, mucous membranes moist Neck exam: Present: normal inspection. Absent: tenderness, meningismus, lymphadenopathy Respiratory exam: Present: normal lung sounds bilaterally. Absent: respiratory distress, wheezes, rales, rhonchi, stridor Cardiovascular Exam: Present: regular rate, normal rhythm, normal heart sounds. Absent: systolic murmur, diastolic murmur, rubs, gallop, clicks GI/Abdominal exam: Present: soft, normal bowel sounds. Absent: distended, tenderness, guarding, rebound, rigid Extremities exam: Present: normal inspection, full ROM, normal capillary refill. Absent: tenderness, pedal edema, joint swelling, calf tenderness Back exam: Present: normal inspection Neurological exam: Present: alert, oriented X3, CN II-XII intact Psychiatric exam: Present: normal affect, normal mood Skin exam: Present: warm, dry, intact, normal color. Absent: rash Course Vital Signs 11/13/18 16:54 Temperature 97.6 F Pulse Rate 87 Respiratory 18 Rate Blood Pressure 136/81 O2 Sat by Pulse 96 Oximetry - Reevaluation(s) Reevaluation #1: 11/13/18 19:46 Medical record is reviewed Reevaluation #2: 11/13/18 19:46 Patient's in no acute distress - Consultations Consultation #1: Doctor Tejeda accepts admission Medical Decision Making - Medical Decision Making 82 male the ER for evaluation, patient presents with Coumadin coagulopathy and hematuria. Patient's hemoglobin is normal and stable from prior. Vital signs are normal. Patient be admitted for reversal of anticoagulation - Lab Data Result diagrams: 11/13/18 17:04 11/13/18 17:04 Lab Results 11/13/18 11/13/18 11/13/18 Range/Units 17:04 17:04 17:04 WBC 9.7 (3.8-10.6) k/uL RBC 4.18 L (4.30-5.90) m/uL Hgb 12.7 L (13.0-17.5) gm/dL Hct 38.4 L (39.0-53.0) % MCV 91.9 (80.0-100.0) fL MCH 30.4 (25.0-35.0) pg MCHC 33.1 (31.0-37.0) g/dL RDW 14.0 (11.5-15.5) % Plt Count 270 (150-450) k/uL Neutrophils % 63 % Lymphocytes % 27 % Monocytes % 5 % Eosinophils % 3 % Basophils % 1 % Neutrophils # 6.2 (1.3-7.7) k/uL Lymphocytes # 2.6 (1.0-4.8) k/uL Monocytes # 0.5 (0-1.0) k/uL Eosinophils # 0.3 (0-0.7) k/uL Basophils # 0.1 (0-0.2) k/uL PT (9.0-12.0) sec INR (<1.2) APTT (22.0-30.0) sec Sodium 140 (137-145) mmol/L Potassium 4.9 (3.5-5.1) mmol/L Chloride 107 (98-107) mmol/L Carbon Dioxide 24 (22-30) mmol/L Anion Gap 9 mmol/L BUN 21 H (9-20) mg/dL Creatinine 1.04 (0.66-1.25) mg/dL Est GFR (CKD-EPI)AfAm 78 (>60 ml/min/1.73 sqM) Est GFR (CKD-EPI)NonAf 67 (>60 ml/min/1.73 sqM) Glucose 91 (74-99) mg/dL Calcium 9.7 (8.4-10.2) mg/dL Magnesium 2.1 (1.6-2.3) mg/dL Total Bilirubin 0.8 (0.2-1.3) mg/dL AST 38 (17-59) U/L ALT 28 (21-72) U/L Alkaline Phosphatase 85 (38-126) U/L Total Protein 8.2 (6.3-8.2) g/dL Albumin 4.6 (3.5-5.0) g/dL Urine Color Urine Appearance (Clear) Urine RBC (0-5) /hpf Urine WBC (0-5) /hpf Blood Type A Positive Blood Type Recheck No Antibody Screen NEGATIVE Spec Expiration Date 11/16/2018230311/13/18 11/13/18 Range/Units 17:04 18:30 WBC (3.8-10.6) k/uL RBC (4.30-5.90) m/uL Hgb (13.0-17.5) gm/dL Hct (39.0-53.0) % MCV (80.0-100.0) fL MCH (25.0-35.0) pg MCHC (31.0-37.0) g/dL RDW (11.5-15.5) % Plt Count (150-450) k/uL Neutrophils % % Lymphocytes % % Monocytes % % Eosinophils % % Basophils % % Neutrophils # (1.3-7.7) k/uL Lymphocytes # (1.0-4.8) k/uL Monocytes # (0-1.0) k/uL Eosinophils # (0-0.7) k/uL Basophils # (0-0.2) k/uL PT >130.0 H (9.0-12.0) sec INR >10.0 H* (<1.2) APTT 70.7 H (22.0-30.0) sec Sodium (137-145) mmol/L Potassium (3.5-5.1) mmol/L Chloride (98-107) mmol/L Carbon Dioxide (22-30) mmol/L Anion Gap mmol/L BUN (9-20) mg/dL Creatinine (0.66-1.25) mg/dL Est GFR (CKD-EPI)AfAm (>60 ml/min/1.73 sqM) Est GFR (CKD-EPI)NonAf (>60 ml/min/1.73 sqM) Glucose (74-99) mg/dL Calcium (8.4-10.2) mg/dL Magnesium (1.6-2.3) mg/dL Total Bilirubin (0.2-1.3) mg/dL AST (17-59) U/L ALT (21-72) U/L Alkaline Phosphatase (38-126) U/L Total Protein (6.3-8.2) g/dL Albumin (3.5-5.0) g/dL Urine Color Dark Red Urine Appearance Bloody (Clear) Urine RBC >182 H (0-5) /hpf Urine WBC 3 (0-5) /hpf Blood Type Blood Type Recheck Antibody Screen Spec Expiration Date Disposition Clinical Impression: Coagulopathy, Hematuria Disposition: ADMITTED IP TO THIS [facility] Condition: Good Is patient prescribed a controlled substance at d/c from ED?: No Referrals: Arnol Andujar MD [Primary Care Provider] - 1-2 days
[2018-11-13 17:38] LABS: Basophils # (A) 0.1 k/uL (0-0.2); Basophils % (A) 1 %; Eosinophils # (A) 0.3 k/uL (0-0.7); Eosinophils % (A) 3 %; HCT 38.4 % (39.0-53.0); HGB 12.7 gm/dL (13.0-17.5); Lymphocytes # (A) 2.6 k/uL (1.0-4.8); Lymphocytes % (A) 27 %; MCH 30.4 pg (25.0-35.0); MCHC 33.1 g/dL (31.0-37.0); MCV 91.9 fL (80.0-100.0); Mean Platelet Volume 7.1; Monocytes # (A) 0.5 k/uL (0-1.0); Monocytes % (A) 5 %; Neutrophils # (A) 6.2 k/uL (1.3-7.7); Neutrophils % (A) 63 %; Platelet Count 270 k/uL (150-450); RBC 4.18 m/uL (4.30-5.90); WBC 9.7 k/uL (3.8-10.6)
[2018-11-13 17:44] LABS: Albumin 4.6 g/dL (3.5-5.0); Calcium 9.7 mg/dL (8.4-10.2); Magnesium 2.1 mg/dL (1.6-2.3); Potassium 4.9 mmol/L (3.5-5.1); Total Bilirubin 0.8 mg/dL (0.2-1.3); Total Protein 8.2 g/dL (6.3-8.2)
[2018-11-13 17:53] LABS: RBC,Urine >182 /hpf (0-5); WBC,Urine 3 /hpf (0-5)
[2018-11-13 17:55] LABS: Appearance,Urine Bloody (Clear); Color,Urine Dark Red
[2018-11-13 19:06] LABS: Prothrombin Time >130.0 sec (9.0-12.0)
[2018-11-13 19:09] LABS: INR >10.0 (<1.2); Partial Thromboplastin Time 70.7 sec (22.0-30.0)
[2018-11-13] MEDS ORDERED: PHYTONADIONE 10 MG in SODIUM CHLORIDE 0.9% 50 ML IVPB STA (19:46)
[2018-11-13 22:11] VITALS: BMI 24.8
[2018-11-14 04:31] LABS: HCT 31.4 % (39.0-53.0); HGB 10.8 gm/dL (13.0-17.5); MCH 31.7 pg (25.0-35.0); MCHC 34.3 g/dL (31.0-37.0); MCV 92.3 fL (80.0-100.0); Mean Platelet Volume 6.3; Platelet Count 242 k/uL (150-450); RDW 13.8 % (11.5-15.5); WBC 8.5 k/uL (3.8-10.6)
[2018-11-14 04:40] LABS: INR 1.5 (<1.2)
[2018-11-14 07:47] VITALS: RESP 18
[2018-11-14] MEDS ORDERED: ATORVASTATIN 20 MG TAB PO SCH (11:00)
[2018-11-14] MEDS: IPRATROPIUM 0.5 MG/2.5 ML NEBU INHALATION SCH ×3 (11:20→16:10)
[2018-11-14 15:33] VITALS: BP 93/54; PULSE 63; TEMP 98.1
[2018-11-14] MEDS ORDERED: RIVAROXABAN 20 MG TAB PO SCH (17:30)
--- NOTE | 2018-11-14 18:30 | DS ---
DISCHARGE SUMMARY HISTORY AND PHYSICAL AND DISCHARGE SUMMARY: DATE OF ADMISSION: 11/13/2018 DATE OF DISCHARGE: 11/14/2018 PRESENTING COMPLAINT: Hematuria. HISTORY OF PRESENTING COMPLAINT: This is a very pleasant 82-year-old patient who follows with Dr. Andujar. Patient is a resident of [facility]. Chronic stable medical conditions include atrial fibrillation, hypertension, hyperlipidemia, permanent pacemaker and memory impairment. Patient is slightly forgetful. Patient just presented feeling a bit out of sorts, noticed hematuria for a day or two, presented to the ER. The patient was noted to have an INR greater than 10. I spoke to the ER physician and did give vitamin K 10 mg IV and patient was admitted to the medical floor. Subsequently patient's hematuria has improved. Patient is a bit forgetful and was getting mixed up with his different colors of pills. Patient's daughter is present at the bedside. Patient does follow up with Dr. Martinez from Cardiology. REVIEW OF SYSTEMS: CONSTITUTIONAL: Tired. HEENT: None. RESPIRATORY: None. CARDIOVASCULAR: None. GASTROINTESTINAL: None. GENITOURINARY: None. MUSCULOSKELETAL: Occasional pain in the joints. DERMATOLOGICAL: None. HEMATOLOGICAL: As above. LYMPHATICS: None. PSYCHIATRY: Forgetful. NEUROLOGICAL: None. PAST MEDICAL HISTORY: 1. Atrial fibrillation. 2. Hypertension. 3. Hyperlipidemia. 4. Memory impairment. 5. Permanent pacemaker. PAST SURGICAL HISTORY: 1. Appendectomy. 2. Cholecystectomy. 3. Hernia repair. 4. Prostate surgery. 5. Tonsillectomy. 6. Hemorrhoidectomy. SOCIAL HISTORY: Patient smoked in the past. Currently he lives at [facility]. No alcohol. Retired. FAMILY HISTORY: Dementia. HOME MEDICATIONS: 1. Coumadin 5 mg on Friday and 2.5 mg other days. 2. Spiriva 1 capsule p.o. daily. 3. Belsomra 20 mg at bedtime. 4. Zoloft 100 mg at bedtime. 5. Melatonin 10 mg at bedtime. 6. Aricept 5 mg at bedtime. 7. Vitamin D3 2000 units p.o. at bedtime. 8. Lipitor 20 mg p.o. daily. 9. Atenolol 25 mg at bedtime. ALLERGIES: NONE. PHYSICAL EXAMINATION: VITAL SIGNS: Temperature 98.1, pulse 85, respiration 16, blood pressure 130/86, pulse ox 95% on room air. GENERAL APPEARANCE: Well built. Sitting up. Awake. EYES: Pupils equal. Conjunctivae normal. HEENT: External appearance of nose and ears normal. Oral cavity normal. NECK: JVD not raised. Mass not palpable. RESPIRATORY: Effort normal. LUNGS: Fair air entry. CARDIOVASCULAR: Heart sounds irregular. No edema. ABDOMEN: Soft, non-tender. Liver and spleen not palpable. LYMPHATIC: No lymph node palpable in neck or axillae. PSYCHIATRY: Alert and oriented x3. Mood and affect normal. NEUROLOGICAL: Pupils equal. Cranial nerves grossly intact. Power and sensation grossly intact. INVESTIGATIONS: White count 9.7, hemoglobin 12.7, repeat 10.8. INR was 10 on admission, repeat 1.5 today. Potassium 4.9, BUN 21, creatinine 1.04. ASSESSMENT: 1. Acute Coumadin toxicity leading to hematuria that was bleeding. 2. Acute blood loss anemia from hematuria. 3. Persistent atrial fibrillation, chronically on Coumadin. 4. Essential hypertension. 5. Hyperlipidemia. 6. 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 7. Permanent pacemaker. PLAN: Patient did receive vitamin K. INR has come down to 1.5. Other home medications are resumed. I had a lengthy talk with the patient and his daughter. Will start the patient on Xarelto. Patient to have a repeat CBC in a week's time. Patient told to keep an eye on his urine. Patient also is due to follow up with his acid retort operator. Care was discussed. Questions were answered. This is both a history and physical and a discharge summary. MMODL / IJN: [id number] /
[2018-11-14] MEDS ORDERED: DONEPEZIL 5 MG TAB PO SCH (21:00)
[2018-11-14] MEDS ORDERED: ATENOLOL 25 MG TAB PO SCH (21:00)
[2018-11-14] MEDS ORDERED: MELATONIN 5 MG TABLET PO SCH (21:00)
[2018-11-14] MEDS ORDERED: NON-FORMULARY DRUG (Suvorexant [Belsomra] 20 MG) PO SCH (21:00)
[2018-11-14] MEDS ORDERED: SERTRALINE 100 MG TAB PO SCH (21:00)
== END 2018-11-14 18:45 | disposition home or self-care (01) | DRG 813 ==
LOC: EC 16:52 → 2SICU 19:45 → 3SCARD 21:38
PROVIDERS: ADMIT Hospitalist; ATTEND Hospitalist
DX: D68.32 Hemorrhagic disorder due to extrinsic circulating anticoagulants (principal); D62 Acute posthemorrhagic anemia; I48.1 Persistent atrial fibrillation; R31.9 Hematuria, unspecified; T45.515A Adverse effect of anticoagulants, initial encounter; E78.5 Hyperlipidemia, unspecified; F02.80 Dementia in other diseases classified elsewhere, unspecified severity, without behavioral disturbance, psychotic disturbance, mood disturbance, and anxiety; G30.1 Alzheimer's disease with late onset; I10 Essential (primary) hypertension; Z79.01 Long term (current) use of anticoagulants; Z87.891 Personal history of nicotine dependence; Z79.899 Other long term (current) drug therapy; Z90.49 Acquired absence of other specified parts of digestive tract; Z95.0 Presence of cardiac pacemaker
CPT/HCPCS: 36415; 80053; 81001; 83735; 85025; 85027; 85610; 85730; 86850; 86900; 86901; 87086; 96361; 96365; 99284

== ENCOUNTER → 2019-09-02 | Outpatient (CLI) | payer MEDICARE, OTHER ==
[2019-09-02 11:32] LABS: Basophils # (A) 0.1 k/uL (0-0.2); Basophils % (A) 1 %; Eosinophils # (A) 0.4 k/uL (0-0.7); Eosinophils % (A) 3 %; HCT 38.1 % (39.0-53.0); HGB 12.6 gm/dL (13.0-17.5); Lymphocytes # (A) 2.3 k/uL (1.0-4.8); Lymphocytes % (A) 18 %; MCH 31.2 pg (25.0-35.0); MCV 94.7 fL (80.0-100.0); Mean Platelet Volume 7.3; Monocytes # (A) 0.6 k/uL (0-1.0); Monocytes % (A) 5 %; Neutrophils # (A) 8.9 k/uL (1.3-7.7); Neutrophils % (A) 72 %; Platelet Count 372 k/uL (150-450); RBC 4.02 m/uL (4.30-5.90); RDW 12.8 % (11.5-15.5); WBC 12.4 k/uL (3.8-10.6)
[2019-09-02 16:15] LABS: African American GFR (CKD) 58.9 (60.0-200.0); Albumin 4.6 g/dL (3.80-4.90); Albumin/Globulin Ratio 1.92 (1.60-3.17); Anion Gap 8.2 mmol/L (4.00-12.00); BUN/Creat Ratio 21.54 Ratio (12.00-20.00); Calcium 9.7 mg/dL (8.7-10.3); Carbon Dioxide 26.8 mmol/L (21.6-31.8); Chol/HDL Ratio 2.98; Globulin 2.4 g/dL (1.6-3.3); LDL Cholesterol,Calculated 62.2 mg/dL (0.0-131.0); Non-African American GFR(CKD) 50.8 (60.0-200.0); Potassium 4.3 mmol/L (3.5-5.5); Total Bilirubin 0.4 mg/dL (0.2-1.2); VLDL Calculation 18.8 mg/dL (5.00-40.00)
== END | disposition home or self-care (01) ==
LOC: LABWHC1 11:04
PROVIDERS: ATTEND Family Medicine
DX: I48.91 Unspecified atrial fibrillation (principal)
CPT/HCPCS: 36415; 80053; 80061; 85025